=== PATIENT | female | born 1965 | race Caucasian/White ===

== ENCOUNTER 2025-07-16 16:56 | Emergency (ER) | payer MEDICAID ==
[~2025-07-16] VITALS: Ht 149.9 cm; Wt 65.6 kg
--- NOTE | 2025-07-16 17:16 | ELECTROCARDIOGRAPH REPORT ---
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 Liam Posadas Measurements Intervals [place] Rate: 82 P: 0 DE: 0 QRS: 56 QRSD: 100 T: 48 QT: 383 QTc: 448 Interpretive Statements Atrial flutter with predominant 3:1 AV block Baseline wander in lead(s) V2 Electronically Signed On 07-16-2025 18:23:[address] Liam Posadas Please click the below link to view image of tracing.
[2025-07-16 17:51] LABS: MEAN PLATELET VOLUME 10.2 FL (7.4-10.4); RED CELL DISTRIBUTION WIDTH 12.7 % (11.5-14.5)
--- NOTE | 2025-07-16 17:53 | RADIOLOGY REPORT ---
CHEST RADIOGRAPH Indication: CP Technique: Single frontal view of the chest was obtained Comparison: None FINDINGS: Lines and Tubes: None Lungs: No focal consolidation. Pleura: No effusion. No pneumothorax. Cardiomediastinal contours: Unremarkable Bones: No acute osseous abnormality. IMPRESSION: No acute cardiopulmonary disease.
[2025-07-16 18:14] LABS: CREATININE 0.57 MG/DL (0.40-0.90); PRO BRAIN NATRIURETIC PEPTIDE 34 PG/ML (0-125); TOTAL CARBON DIOXIDE 29.0 MMOL/L (24-32); eCRCL 72 ML/MIN; eGFR > 90 ML/MIN
--- NOTE | 2025-07-16 19:04 | Physician Documentation ---
History of Present Illness ~ Chief Complaint: Dizziness Stated Complaint: DIZZINESS/SINUS INFECTION Time Seen by MD: 19:00 OK to notify your PCP?: Yes Source: patient, RN/MD, RN notes reviewed Mode of Arrival: POV, Ambulatory Exam Limitations: no limitations HPI This pleasant 59-year-old has a history of sinusitis as well as vertigo. She states she is dizzy when she moves her head changes positions. She denies any fevers or chills no weakness numbness of her extremities she does have a sinus congestion as well in the frontal sinuses also the right maxillary sinus. She says has been going on for awhile on and off. She started having symptoms for the last three days but today started getting really dizzy. She is here more for dizziness. She denies any vision changes headaches no difficulty walking no weakness or numbness. She lives at [facility] in the [facility]. She reports chronic tinnitus Medication Reconciliation Allergies: Coded Allergies: No Known Allergies (Unverified , 07/16/25) Scheduled Azithromycin (Zithromax), 1 TAB PO UD Meclizine Hcl (Meclizine Hcl), 1 TAB PO Q8H Past Medical History Past Medical History: Vertigo, Sinusitis Past Surgical History: hysterectomy, other (Jaw surgery) Smoking Status: Current every day smoker Alcohol Use: Sober Drug Use: none Review of Systems All Other Systems at this time: Reviewed and Negative Physical Exam Vital Signs: RN Vital Signs have been reviewed: Yes, Temperature: 97.9, Source: Temporal, Heart Rate: 73, Respiratory Rate: 20, BP: 160/97, Pulse Oximetry: 97, Weight: 65.600 Oxygen Flow Rate: 0 Physical Exam General: The patient is well developed, well nourished, nontoxic appearing and is in no acute distress. Skin: [place], warm and dry with no rashes. HEENT: Head was normocephalic and atraumatic. Eyes - pupils equal, round, reactive to light and accommodation. Extraocular movements were intact. Positive horizontal nystagmus changes in intensity with position. Conjunctivae were nonicteric. The mouth and oropharynx were clear with moist mucous membranes. There were no pharyngeal exudates or erythema. Palpation of the right maxillary sinus produces pain no erythema to the face. Nasal congestion but no discharge frontal sinuses also painful to palpation bilaterally Neck: Supple and nontender. There was no jugular venous distention, lymphadenopathy, thyromegaly or masses. Chest: Clear to auscultation bilaterally without wheezes, rales or rhonchi. No accessory muscle use. No dullness to percussion. Heart: Rate regular and rhythmic. S1, S2. No murmurs. Palpation of the chest wall was normal. No rubs or thrills. Abdomen: Soft, nontender and nondistended. Positive bowel sounds. No guarding or rebound. No hepatosplenomegaly or palpable masses. Extremities: No cyanosis, clubbing or edema. The patient moves all extremities. Pulses were equal and symmetric. Neurologic: Cranial nerves II-XII were intact. Sensation was intact to light touch throughout. Motor strength was 5/5 in all four extremities. Deep tendon reflexes were intact in both upper and lower extremities. Positive horizontal nystagmus Psychologic: The patient was oriented to person, place and time. The patient demonstrated appropriate judgement and insight. Progress Results/Orders Reviewed/noted all lab results: Yes Results/Orders Orders - LIAM CARRILLO MD Diazepam Tablet (Valium Tablet) (07/16/25 19:15) Azithromycin Tablet (Zithromax Tablet) (07/16/25 19:15) Vital Signs 07/16/25 07/16/25 07/16/25 17:04 17:39 17:39 Temp 97.9 Pulse 80 73 Resp 18 20 16 B/P (MAP) 179/110 160/97 (118) Pulse Ox 96 97 O2 Flow Rate 0 0 Laboratory Tests Test 07/16/25 17:28 07/16/25 19:10 White Blood Count 11.7 H Red Blood Count 5.47 Hemoglobin 17.0 H Hematocrit 49.7 H Mean Corpuscular Volume 90.7 Mean Corpuscular Hemoglobin 31.1 H Mean Corpuscular Hemoglobin Concent 34.3 Red Cell Distribution Width 12.7 Platelet Count 309 Mean Platelet Volume 10.2 Neutrophils (%) (Auto) 74.3 Lymphocytes (%) (Auto) 18.8 L Monocytes (%) (Auto) 5.2 Eosinophils (%) (Auto) 0.7 Basophils (%) (Auto) 1.0 Neutrophils # (Auto) 8.7 H Lymphocytes # (Auto) 2.2 Monocytes # (Auto) 0.6 Eosinophils # (Auto) 0.1 Basophils # (Auto) 0.1 CBC Comment Sodium Level 141 Potassium Level 4.0 Chloride Level 107 Carbon Dioxide Level 29.0 Anion Gap 5 L Blood Urea Nitrogen 8 Creatinine 0.57 Estimated GFR/1.73 m2 > 90 BUN/Creatinine Ratio 14.0 Glucose Level 121 H Calcium Level 9.2 Troponin I High Sensitivity 11 Pro-B-Type Natriuretic Peptide 34 Albumin 3.7 Chemistry Comments Re-Evaluation Re-Evaluation : Re-Evaluation: Improved Progress Patient did not have significant neuro symptoms. Her dizziness is not intractable. She has had symptoms in the past and also has some nasal congestion. Patient was given aspirin Valium and started on Zithromax for her symptomatic sinusitis. She was encouraged to take Benadryl as needed. Otherwise patient is doing well return if she has worsening symptoms such as upper extremity weakness numbness. Patient did have a workup to rule out possible stroke or cardiac etiologies. Patient's CBC WBC shows slight elevation of 11.7 with some hemoconcentration of 17 and 49 possibility of tobacco smoking excessively. Patient's neutrophils are normal at 74 patient's chemistry is within normal limits troponin is 11 2nd troponin is also negative. 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 Liam Carrillo Measurements Intervals [place] Rate: 82 P: 0 DC: 0 QRS: 56 QRSD: 100 T: 48 QT: 383 QTc: 448 Interpretive Statements Atrial flutter with predominant 3:1 AV block Baseline wander in lead(s) V2 Electronically Signed On 07-16-2025 18:23:[address] Liam Carrillo Please click the below link to view image of tracing. EKG Date and Time:07/16/25 0348 Heart Score: Heart Score Response (Comments) Value History N/A 0 EKG Normal 0 Age 45-64 1 Risk Factors 1 or 2 risk factors 1 Troponin Normal limit 0 Total 2 Medical Decision Making Additional information obtaine: old records Findings Patient has a heart score of two but heart flutter on EKG has a bit concerning with her symptoms of dizziness she was given aspirin and told to take a daily aspirin. Differential Dx:Considerations: Include: anemia, CVA, dehydration, dysrhythmia, electrolyte imbalance, encephalopathy, hypoglycemia, Meniere's disease, myocar dial infarction, pulmonary embolus, renal failure, TIA, VBI, vertigo central, vertigo peripheral, vestibular neuronitis, other Departure Disposition: HOME / SELF CARE / HOMELESS Impression: Primary Impression: Vertigo Additional Impressions: Sinusitis, acute maxillary Qualified Codes: J01.01 - Acute recurrent maxillary sinusitis Atrial flutter by electrocardiogram Condition: Stable Discharge Instructions: Atrial Flutter, Sinus Infection, Adult, Vertigo Referrals: NO PRIMARY CARE PROVIDER (PCP) Prescriptions Azithromycin (Zithromax) 250 Mg Tablet 1 TAB PO UD for 4 Days, #4 TAB 2 the first day followed by 1 for days 2-5 Prov: LIAM CARRILLO MD 07/16/25 Meclizine Hcl (MECLIZINE HCL) 12.5 Mg Tablet 1 TAB PO Q8H for dizziness for 30 Days, #90 TAB 0 Refills Prov: LIAM CARRILLO MD 07/16/25 Education Educated: Patient Educated regarding: diagnosis, need for follow up, other Signature Scribe Signature: n Attestation: The note accurately reflects work and decisions made by me.Liam Carrillo MD 07/16/25 19:04 LIAM CARRILLO MD Jul 16, 2025 19:04
[2025-07-16] MEDS ORDERED: AZIT250T PO (19:14)
[2025-07-16] MEDS ORDERED: MECL-231 PO (19:14)
[2025-07-16] MEDS ORDERED: ASPI81TA52 PO (19:27)
[2025-07-16 19:43] VITALS: BP 167/93; PULSE 85; RESP 21; TEMP 97.9; O2SAT 98
== END 2025-07-16 19:45 | disposition home or self-care (01) ==
LOC: ER 16:57
DX: R42 Dizziness and giddiness (principal); I48.92 Unspecified atrial flutter; J01.01 Acute recurrent maxillary sinusitis; F17.200 Nicotine dependence, unspecified, uncomplicated; Z90.710 Acquired absence of both cervix and uterus; Z79.899 Other long term (current) drug therapy
CPT/HCPCS: 36415; 71045; 80048; 83880; 84484; 85025; 93005; 99285